=== PATIENT | female | born 1965 | race Caucasian/White ===

== ENCOUNTER 2017-03-17 16:30 | Emergency (ER) | payer BC ==
[2017-03-17] MEDS ORDERED: Ketorolac 60 MG/2 ML SDV IM ONE (17:33)
[2017-03-17] MEDS ORDERED: Acetaminophen/Butalbital/Caffeine 325-50-40 MG Tab PO ONE (18:32)
--- NOTE | 2017-03-17 18:58 | EDM.PDOC ---
ED HPI GENERAL MEDICAL PROBLEM - General Chief Complaint: Headache Stated Complaint: HEADACHE Time Seen by Provider: 03/17/17 16:56 Source of Information: Reports: Patient History Limitations: Reports: No Limitations - History of Present Illness INITIAL COMMENTS - FREE TEXT/NARRATIVE: 51-year-old female presents for evaluation treatment of a headache. Patient reports headache started yesterday and has progressively worsened. She reports pain across the front of her head and into her neck. She states that she has a history of tension headaches and this feels similar. She feels that this was likely brought on as she is camping [place]. reports increased stress as of late. She reports some nausea but denies any vomiting, blurry vision, double vision, fevers, ear pain, sinus pressure or throat pain Patient reports that she has been seen in the ER previously for headaches (in [place]). She is uncertain what treatment she has received in the past. Headache Pain Score (Numeric/FACES): 10 - Related Data Allergies Allergy/AdvReac Type Severity Reaction Status Date / Time No Known Allergies Allergy Verified 03/17/17 16:39 Home Meds: Home Meds Cyclobenzaprine [Flexeril] 10 mg PO TID 03/17/17 [History] Hydrocodone. 03/17/17 [History] Prempro. 03/17/17 [History] Propanolol. 03/17/17 [History] Triamterene. 03/17/17 [History] Past Medical History Neurological History: Reports: Other (See Below) Other Neuro History: tension headaches Social & Family History - Tobacco Use Smoking Status *Q: Never Smoker ED ROS GENERAL - Review of Systems Review Of Systems: See Below Constitutional: Reports: Other (reports photophobia). Denies: Fever HEENT: Denies: Ear Pain, Sinus Problem, Throat Pain, Vision Change GI/Abdominal: Reports: Nausea. Denies: Vomiting Musculoskeletal: Reports: Neck Pain Neurological: Reports: Headache - Physical Exam Exam: See Below Exam Limited By: No Limitations General Appearance: Alert, WD/WN, No Apparent Distress, Mild Distress Eye Exam: Bilateral Eye: EOMI, Normal Inspection, PERRL Ears: Normal External Exam, Normal Canal, Hearing Grossly Normal, Normal TMs Nose: Normal Inspection Throat/Mouth: Normal Inspection, Normal Lips, Normal Voice, No Airway Compromise Head Exam: Atraumatic, Normocephalic Neck: Normal Inspection, Supple, Non-Tender, Full Range of Motion Respiratory/Chest: No Respiratory Distress, Lungs Clear, Normal Breath Sounds Cardiovascular: Normal Peripheral Pulses, Regular Rate, Rhythm, No Murmur Neuro Exam (Abbreviated): Alert, Oriented, CN II-XII Intact, Normal Cognition, Normal Gait Psychiatric: Normal Affect, Normal Mood Skin Exam: Warm, Dry, Normal Color Course - Vital Signs Last Recorded V/S: Last Vital Signs Temp 36.5 C 03/17/17 16:35 Pulse 100 03/17/17 19:00 Resp 18 03/17/17 16:35 BP 172/105 H 03/17/17 19:00 Pulse Ox 100 03/17/17 19:00 - Orders/Labs/Meds Meds: Medications Discontinued Medications Generic Name Dose Route Start Last Admin Trade Name Megan PRN Reason Stop Dose Admin Acetaminophen/Butalbital/Caffeine 1 tab 03/17/17 18:32 03/17/17 18:41 Fioricet 325-50-40 Mg PO 03/17/17 18:33 1 tab ONETIME ONE Administration Ketorolac Tromethamine 60 mg 03/17/17 17:33 03/17/17 17:42 Toradol IM 03/17/17 17:34 60 mg ONETIME ONE Administration - Re-Assessments/Exams Free Text/Narrative Re-Assessment/Exam: 03/17/17 17:44 Attempted to get records from [facility] and [facility] in [place] to identify previous successful treatment. Both hospitals reported that she has not been seen in the ER for headaches. We were able to obtain a note from further neurologist nurse practitioner. Recommendations including continued with current plan of care with Flexeril, trigger point injections and massage. We will defer testing at this time. Her current headache is similar to ones previously. Toradol IM ordered for pain 03/17/17 18:30 Headache continues to be a 7/10. Fiorcet ordered for headache. 03/17/17 18:57 At this point the patient reports that her headache is now a 4 out of 10. She feels comfortable with a form would like to go home. Discharge instructions was documented. Departure - Departure Time of Disposition: 18:57 Disposition: Home, Self-Care 01 Condition: Fair Clinical Impression: Tension-type headache - Discharge Information Instructions: Migraine Headache Referrals: Danielle Olson MD [Primary Care Provider] - Forms: ED Department Discharge Additional Instructions: Follow-up with your primary care provider for your hypertension. Rest. make sure you are drinking plenty of fluids. Follow-up with your neurologist as needed for further headache treatment. Please return to the ER if your symptoms change or worsen.
[2017-03-17 19:07] VITALS: BP 172/105
== END 2017-03-17 19:04 | disposition home or self-care (01) ==
LOC: JD.ED 16:30
DX: G44.209 Tension-type headache, unspecified, not intractable (principal)
CPT/HCPCS: 96372; 99284; A9270; J1885; 99283